=== PATIENT | male | born 1980 | race Caucasian/White ===

== ENCOUNTER 2024-06-10 10:27 | Day surgery (SDC) | payer OTHER, SELFPAY ==
[2024-06-10] VITALS (11 sets, daily range): BP systolic 110–143; BP diastolic 76–89; PULSE 85–118; RESP 16–18; TEMP 36.1–37.1; O2SAT 95–99; BMI 26.4
[2024-06-10] MEDS: Glucagon 1 MG/ML Syringe IV (12:42)
--- NOTE | 2024-06-10 12:58 | EDS_ITS ---
HPI History of Present Illness Chief Complaint: Foreign Body Informant: patient Narrative Narrative: Presents for evaluation concerns for steak impaction esophagus. He ate small piece of steak Sunday states his only 1 piece fell he got lodged in the middle of his chest. Since then only drank a little bit of water would come back up. He has tried Sprite. He states over 3 days minimal fluid attempted however would come back up. No issues in the past no history of endoscopies. No anticoagulants. No past medical history. No allergies. Prior similar symptoms: No PFSH PFSH Medical History no medical history Allergy/AdvReac Type Severity Reaction Status Date / Time No Known Allergies Allergy Verified 06/10/24 10:27 Surgical History no surgical history Social History Smoking Status: Never smoker ROS ROS ED Constitutional Constitutional ED: Denies chills, fever(s) or sweats ENT ENT ED: Reports other Details: Food impaction, dysphagia ; Denies sore throat Cardiovascular Cardiovascular: Denies chest pain, leg edema, palpitations or racing heartbeat Respiratory/Chest Respiratory/Chest: Denies cough, dyspnea or dyspnea on exertion Gastrointestinal Gastrointestinal: Reports vomiting; Denies abdominal pain, diarrhea or nausea Genitourinary Genitourinary ED: Denies hematuria or urinary frequency Integumentary Denies rash or wounds Neurologic Neurologic: Denies headache(s), paresthesias or weakness EXAM Physical Exam Const Vital Signs: 06/10/24 10:27 06/10/24 11:38 06/10/24 12:44 Temperature 98.7 F Temperature Source Temporal Pulse Rate 118 H 90 Respiratory Rate 18 18 Respiratory Effort Normal Non-Labored Respiratory Pattern Normal Blood Pressure 115/85 H 133/89 H Blood Pressure Mean 95 103 Pulse Ox 98 96 Oxygen Delivery Method Room Air Room Air 06/10/24 14:00 06/10/24 14:53 06/10/24 15:24 Temperature 98.2 F 98.2 F Temperature Source Pulse Rate 88 92 92 Respiratory Rate 18 18 18 Respiratory Effort Respiratory Pattern Blood Pressure 143/81 H 137/81 H 137/81 H Blood Pressure Mean 101 99 Pulse Ox 97 99 99 Oxygen Delivery Method Room Air Room Air Positive well nourished and well developed General Appearance ED: well developed and NAD HEENT Reports moist mucous membranes HEENT Narrative: Airway patent, no distress. normocephalic and atraumatic Eyes General Eye ED: Yes normal appearance of both eyes Neck full ROM Chest Wall Chest: Negative for tenderness Resp normal respiratory effort and normal air movement Effort and Inspection: symmetric chest movement; Negative for respiratory distress Cardio regular rate, regular rhythm and no murmurs Peripheral Pulses: pulses 2+ throughout GI normal to inspection, nondistended, normoactive bowel sounds and non-tender Palpation: Negative for guarding or rebound tenderness present Extremity normal to inspection General Extremety ED: Negative for edema or tenderness General Extremity: Negative for edema Neuro oriented x3 and no sensory deficits noted Sensorium / Orientation: awake and alert Skin no rashes or lesions noted and no wounds MDM MDM MDM Narrative Medical decision making narrative: Interventions / MDM: Differential diagnosis: Esophageal food impaction, dysphagia Diagnosis considered but do not suspect: N/A My EKG interpretation: N/A Imaging independently reviewed and interpreted by myself: N/A External documents reviewed: N/A Test considered but not ordered:N/A ED course: Patient's history concerns for esophageal food impaction from steak. This is now day 4. IV established glucagon ordered. 1300: After 1 dose glucagon attempted carbonated drinks, per nursing held down further but then he vomited up. Will try 2 mg of glucagon. On reevaluation, mild improvement attempted additional carbonated drink, had a jump up and down his hills, he felt some improvement of symptoms however became nauseated. Followed up with water, he has small emesis afterwards. I spoke with surgeon Dr. Newton, with patient's history, initial event happening Sunday. His team did come evaluate in the ED, who will take him to endoscopy. patient taken to the endoscopy suite. Re-evaluation: stable Disposition discussed with patient/family/significant other: Patient Case discussed with consulting clinician: General Surgery This note was generated with [employer] dictation software. It may contain incorrect words, spelling, and punctuation that were not noted in checking the note before signing. Discharge Plan Dx/Rx/DC Orders Clinical Impression: Esophageal foreign body, Food impaction of esophagus Disposition Disposition: Acute Care Hospital [facility] Discharge Date/Time: 06/10/24 14:54
[2024-06-10] MEDS: Glucagon 1 MG/ML Syringe 2 MG IV (13:11)
--- NOTE | 2024-06-10 14:23 | PCM.HP.STD ---
HPI - General General Date of Service: 06/10/24 Chief Complaint: Esophageal Foreign body HPI Narrative INOCENCIA WILKES, is a 43 M who presents with a 2 day history of esophageal foreign body. Patient states he had steak on Sunday night, which a single piece ended up getting stuck. He attempted to drink carbonation and water without any success of dislodging the piece of steak. He stated trying to vomit the steak up without any success. He states when he ran out of options and was not able to resolve this on his own he came to the ED. He denies any cardiac history or pulmonary history. He has never had anesthesia previously. [facility] Medical History no medical history Allergy/AdvReac Type Severity Reaction Status Date / Time No Known Allergies Allergy Verified 06/10/24 10:27 Social History Smoking Status: Never smoker ROS Constitutional Constitutional: Reports systems reviewed and no addt'l complaints, except as documented Eyes Eyes: Reports systems reviewed and no addt'l complaints, except as documented ENT HEENT: Reports systems reviewed and no addt'l complaints, except as documented Cardiovascular Cardiovascular: Reports systems reviewed and no addt'l complaints, except as documented Respiratory/Chest Respiratory/Chest: Reports systems reviewed and no addt'l complaints, except as documented Gastrointestinal Gastrointestinal: Reports systems reviewed and no addt'l complaints, except as documented Genitourinary Genitourinary: Reports systems reviewed and no addt'l complaints, except as documented Musculoskeletal Musculoskeletal: Reports systems reviewed and no addt'l complaints, except as documented Integumentary Integumentary: Reports systems reviewed and no addt'l complaints, except as documented Neurologic Neurologic: Reports systems reviewed and no addt'l complaints, except as documented Psychiatric Psychiatric: Reports systems reviewed and no addt'l complaints, except as documented Endocrine Endocrinology: Reports systems reviewed and no addt'l complaints, except as documented Hematologic/Lymphatic Hematologic/Lymphatic: Reports systems reviewed and no addt'l complaints, except as documented Allergic/Immunologic Allergic/Immunologic: Reports systems reviewed and no addt'l complaints, except as documented Vital Signs Vital Signs Vital Signs: 06/10/24 10:27 06/10/24 11:38 06/10/24 12:44 Temperature 98.7 F Temperature Source Temporal Pulse Rate 118 H 90 Respiratory Rate 18 18 Respiratory Effort Normal Non-Labored Respiratory Pattern Normal Blood Pressure 115/85 H 133/89 H Blood Pressure Mean 95 103 Pulse Ox 98 96 Oxygen Delivery Method Room Air Room Air Weight Weight: 178 lb 9.191 oz Body Mass Index (BMI) 26.4 Physical Exam Const alert, oriented x3 and no apparent distress HEENT normocephalic and head/scalp atraumatic Eyes PERRL Neck full ROM Resp normal respiratory effort and clear to auscultation bilaterally Cardio regular rate and regular rhythm GI normal to inspection, nondistended, normoactive bowel sounds Back/Spine Thoracic Spine / Upper Back: thoracic spinal tenderness Extremity normal to inspection Skin no rashes or lesions noted Neuro no focal motor deficits and no sensory deficits noted Psych mental status grossly normal, thought process normal, cooperative and affect normal Assessment & Plan Assessment/Plan (1) Esophageal foreign body: PLAN: I have been consulted to see this patient in conjunction with Dr. Newton. He will independently evaluate this patient. Patient is a 43 y/o M who presents with a 2 day history of impacted steak within his esophagus. He has been unable to swallow solid food and has difficulty swallowing liquids. Dr. Newton will plan to perform an EGD with possible foreign body removal, possible biopsies, possible cessation of bleeding. Procedure details, risks and benefits have been explained to the patient. Patient has had the opportunity to ask and have questions answered. Patient verbally understands and agrees with the plan. Plan to proceed with the purposed procedure at the discretion of the operating room later today. Jeimy padilla for allowing us to participate in this patient's care. Charges/Coding Visit Charges OBSV E&M: 92856 Observ/hosp same date L2
[2024-06-10] MEDS: Lactated Ringers 1,000 ML 15 ML IV (15:05)
--- NOTE | 2024-06-10 15:19 | PCM.PRE.AN2 ---
ASA Classification* ASA Classification ASA Classification: 2 and E Assessment & Plan Anesthesia* Anesthesia Assessment Anesthesia Assessment: Discussed sedation and/or anesthesia options, risks, benefits, and alternatives with patient/parents/legal guardian/POA. Questions invited. The patient/parents/legal guardian/POA seems to understand and agrees to proceed with anesthesia plan. Reviewed the physical assessment, medical history, allergy history and patient home medications list prior to surgery/procedure/anesthetic and documented any changes. Performed airway and anesthesia risk assessments. Anesthesia Type Anesthesia Type: MAC History Source History Obtained from:: Patient and Chart Anesthesia Focused Assessment* Temperature: 98.2 F Pulse Rate: 92 Blood Pressure: 137/81 Respiratory Rate: 18 Pulse Ox: 99 Oxygen Delivery Method: Room Air Airway Assessment Mouth opens: >3 cm Mallampati Score: IV Teeth Condition: Missing (patient has missing several teeth. The rest are tight.) Neck Range of motion (ROM): Full ROM Focused Labs Anesthesia Preop lab: CBC CHEMISTRY COAG Pre-Assessment Diagnosis/Proposed Procedure Planned Operative Procedure(s): Esophagogastroduodenoscopy with removal of foreign body. Anesthesia History Anesthesia History - neuropsychology division chief: Anesthesia History - neuropsychology division chief Hx Hospitalization Any Problems With Anesthesia Cholinesterase deficiency You/Your Family Experience fever (hyperthermia) with Relationship Recent Exposure to Contagious Disease Does patient have nerve stimulator Patient instructed to have device shut off --Does patient have Pacemaker or ICD? When Was Last Pacemaker Check QUESTION #4 FULL TEXT: You/Your Family Experience fever (hyperthermia) with Anesthesia Last Oral Intake Last Oral intake: Last Oral Intake NPO since Meds taken in AM with sips of water? Meds patient instructed to take am of surgery Any additional information?: Yes NPO since: 00:00 PONV PONV - neuropsychology division chief: PONV - neuropsychology division chief Female HX of Motion Sickness HX of N/V After Surgery Non-Smoker Duration of Surgery greater than 60 minutes Number of Risk Factors PONV Score Height & Weight Height & Weight: Anesthesia: Height & Weight Height 5 ft 9 in 06/10/24 10:27 Weight: 81 kg 06/10/24 10:27 Body Mass Index (BMI) 26.4 06/10/24 10:27 Respiratory Assessment Respiratory Assessment - neuropsychology division chief: Respiratory Tract Infection Hx - neuropsychology division chief Hx Respiratory Tract Infection Any additional information?: Yes Hx Respiratory Tract Infection: No STOP Sleep Apnea STOP Sleep Apnea - neuropsychology division chief: STOP Sleep Apnea - neuropsychology division chief Hx Hypertension Hx Sleep Apnea CPAP BIPAP Do you snore loudly (louder than talking or can be heard Do you often feel tired/ fatigued/ sleepy during daytime? Has anyone observed you stop breathing during sleep? STOP Results QUESTION #5 FULL TEXT : Do you snore loudly (louder than talking or can be heard through closed doors)? 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 Specify any problems Hx of Preganancy in last 3 Months Nurse Filling Out Transfusion & Questions: Date: Time: Patient unable to answer at this time (ie. confused, unrespo /Reproduction History /Reproductive History - neuropsychology division chief: /Reproductive Hx- neuropsychology division chief Hx Now Gestational Age (in weeks): EDC: Hx Hx Para Hx Section SAB Active Medications Active Medications: Current Medications Generic Name Dose Route Start Last Admin Trade Name Freq PRN Reason Stop Dose Admin Sodium Chloride 1,000 mls @ 100 mls/hr 06/10/24 14:20 IV .Q10H SHASTA Lactated Ringer's 1,000 mls @ 15 mls/hr 06/10/24 15:00 06/10/24 15:05 IV 15 mls/hr .Q48H SHASTA Administration PFSH Medical History no medical history Allergy/AdvReac Type Severity Reaction Status Date / Time No Known Allergies Allergy Verified 06/10/24 10:27 no surgical history Social History Smoking Status: Never smoker Review of Systems (Anesthesia) ROS Narrative System reviewed and no additional complaints, except as documented.
--- NOTE | 2024-06-10 16:58 | PCM.OPRPT ---
Operative Report (Standard) Operative Information Date of Procedure: 06/10/24 Pre-Operative Diagnosis: Esophageal food impaction Post-Operative Diagnosis: Esophageal food impaction Surgery/Procedure Performed: EGD with foreign body removal disaster recovery analyst: No Type of Anesthesia: Local MAC RN Documented Start/Stop Times: Operation Date: 06/10/24 16:10 Case Time Into Pre-Op 06/10/24 14:51 Anesthesia Start 06/10/24 16:36 Into Room 06/10/24 16:36 Procedure Start 06/10/24 16:50 Procedure End 06/10/24 16:51 Procedure Start Time: 16:50 Procedure Stop Time: 16:51 Select all DRAINS/GRAFTS/IMPLANTS that apply: None Estimated Blood Loss: 1 Specimen collected: No Description of surgery: Patient was brought to the operating room and MAC anesthesia was induced. Bite-block was placed. Next a well-lubricated scope was placed into the mouth and down into the esophagus. The food bolus was readily visualized. It was easily pushed into the stomach. There was some stenosis at the distal esophagus. There was too much inflammation to do a dilation today. The scope was removed and the patient was awoken and taken to PACU in stable condition. Surgical Findings: Impacted steak in the distal esophagus Complications Complications: No
--- NOTE | 2024-06-10 16:59 | EX.PCM.DISCH ---
Discharge Instructions Diet Discharge Diet: Light diet - advance as tolerated Activity Discharge Activity: Return to Normal Activity, May Drive and May Shower Dressing / Incision Call your doctor if you observe: Fever of 101 or Higher Follow Up Care Please Follow Up With: Luis Alfredo Newton MD When: Please call to schedule 2 week follow up appointment. [phone] Test Results: Test results from this visit will be discussed in further detail at your follow-up appointment, if applicable. Discharge Plan Admission Attending Provider: Venu Castillo Primary Care Provider: Care Physician,No Primary Instructions Print Language: Kinyarwanda Discharge Orders/Prescriptions Referrals / Follow Up: Care Physician,No Primary [Primary Care Provider] - Disposition Disposition (needs filled in before D/C Order can be placed): Home, Self Care
--- NOTE | 2024-06-10 17:02 | PCM.POST.ANE ---
Anesthesia: Postop Eval I Current Vital Signs Temperature: 97.5 F Pulse Rate: 92 Blood Pressure: 120/81 Respiratory Rate: 16 Pulse Ox: 96 Oxygen Delivery Method: Nasal Cannula Assessment Airway patent: Yes Spontaneous unlabored respirations: Yes Mental status: Awake and Calm nausea: No Vomiting: No Anesthesia Complication: No Fluid Hydration Crystalloid volume administer (ml): 500 Total IV fluid infused: 500 Progress Note Anesthesia document: Postop Eval 1 completed: Yes
--- NOTE | 2024-06-10 19:36 | PCM.POSTANE2 ---
Anesthesia Postop Eval I Sum Postop Eval Completion status Anesthesia document: Postop Eval 1 completed: Yes Anesthesia Postop Eval I Summary Anesthesia Postop Eval I Summary: Anesthesia Postop Eval I: Assessment Summary Airway patent Yes 06/10/24 17:03 Spontaneous unlabored Yes 06/10/24 17:03 respirations Mental status Awake,Calm 06/10/24 17:03 nausea No 06/10/24 17:03 Vomiting No 06/10/24 17:03 Anesthesia Postop Eval I: Fluid Summary Crystalloid volume administer 500 06/10/24 17:03 (ml) Colloids volume administered ( ml) Blood Product volume administered (ml) Total IV fluid infused 500 06/10/24 17:03 Anesthesia Postop Eval I: Summary Notes Anesthesia Complication No 06/10/24 17:03 Anesthesia Complication Comment: Post-operative progress note Anesthesia: Postop Eval II Evaluation Mental status: Awake and Calm Pain Level: 0 nausea: No Vomiting: No Complications Anesthesia Complication: No
== END 2024-06-10 18:14 | disposition home or self-care (01) ==
LOC: ED 14:17 → EN 14:56 → ACINP 14:56
PROVIDERS: Surgery; Emergency Provider Emergency Medicine; Visit Provider Internal Medicine Gastroenterology
PROC: 0DJ08ZZ Inspection of Upper Intestinal Tract, Via Natural or Artificial Opening Endoscopic (ICD-10-PCS; CPT 43235; principal; 2024-06-10 16:05)
DX: T18.128A Food in esophagus causing other injury, initial encounter (principal); W44.F3XA Food entering into or through a natural orifice, initial encounter
CPT/HCPCS: 43247; 99284; A4216; J1610; J2405